=== PATIENT | female | born 1995 | race Caucasian/White ===

== ENCOUNTER 2022-11-20 14:53 | Emergency (ER) | payer MEDICAID ==
[~2022-11-20] VITALS: Ht 152.4 cm; Wt 54.0 kg
[2022-11-20 15:02] VITALS: BP 119/81
[2022-11-20] MEDS ORDERED: ERYT1OIN6 EACHEYE (17:04)
[2022-11-20] MEDS ORDERED: DOXY100T28 PO (17:04)
[2022-11-20] MEDS ORDERED: NAPR-681 PO (17:04)
[2022-11-20] MEDS ORDERED: CETI10TA11 MT (17:04)
== END 2022-11-20 17:34 | disposition home or self-care (01) ==
LOC: ER 14:53
DX: H01.00B Unspecified blepharitis left eye, upper and lower eyelids (principal); H01.00A Unspecified blepharitis right eye, upper and lower eyelids
CPT/HCPCS: 81025; 99283